=== PATIENT | male | born 1990 | race Caucasian/White ===

== ENCOUNTER 2024-08-26 20:19 | Inpatient (IN) ==
[2024-08-26] MEDS: ONDANSETRON 4 MG/2 ML VIAL IV ONE (20:54)
[2024-08-26] MEDS: 0.9 % SODIUM CHLORIDE 1,000 ML IV ONE ×2 (20:54→22:32)
[2024-08-26 21:16] LABS: Basophils # (Auto) 0.08 K/mcL (0.00-0.30); Basophils % (Auto) 0.3 % (0.0-2.0); Eosinophils # (Auto) 0.04 K/mcL (0.00-0.70); Eosinophils % (Auto) 0.1 % (0.0-7.0); Hematocrit 53.5 % (40.1-51.0); Lymphocytes # (Auto) 2.19 K/mcL (1.50-4.80); Lymphocytes % (Auto) 7.5 % (15.5-49.0); Mean Corpuscular HGB Conc 33.6 g/dL (31.0-36.0); Monocytes # (Auto) 1.29 K/mcL (0.10-0.90); Monocytes % (Auto) 4.4 % (1.0-12.0); Neutrophils % (Auto) 85.5 % (38.0-78.0); Platelet Count 329 K/mcL (140-440); RBC 5.63 M/mcL (4.63-6.08); Red Cell Distribution Width 11.8 % (11.5-14.5)
[2024-08-26 21:26] LABS: ABG Methemoglobin 0.3 % (0.4-1.5); Total Hemoglobin 18.6 gm/Dl (13.5-16.5); VBG Base Excess -26 (-2-3); VBG HCO3 6.3 mmol/L (24.0-28.0); VBG Oxygen Saturation 57.4 % (40.0-70.0); VBG PCO2 30.8 mmHg (41.0-51.0); VBG PH 6.93 U (7.32-7.42); VBG PO2 34.2 mmHg (25.0-40.0); VBG Total CO2 7.2 mmol/L (25.0-29.0)
[2024-08-26] MEDS: morphine 2 MG/ML VIAL IV ONE (21:35)
[2024-08-26 21:53] LABS: ALT/SGPT 37 U/L (<40); AST/SGOT 23 U/L (<40); Albumin 5.4 gm/dL (3.2-5.2); Albumin/Globulin Ratio 1.6 (1.0-2.3); Alkaline Phosphatase 159 U/L (39-117); Bilirubin,Total 0.4 mg/dL (0.1-1.0); Blood Urea Nitrogen 23 mg/dL (6-20); Calcium 9.8 mg/dL (8.6-10.4); Carbon Dioxide 7 mmol/L (22-30); Chloride 92 mmol/L (96-108); Globulin 3.4 gm/dL (2.2-3.7); Glomerular Filtration Rate 71; Glucose 384 mg/dL (70-105); Potassium 5.7 mmol/L (3.3-5.1); Sodium 134 mmol/L (133-145)
[2024-08-26 22:05] LABS: Appearance,Urine Clear (Clear); Bacteria,Urine 0 /hpf ({null, 0}); Bilirubin,Urine Negative (Negative); Color,Urine Yellow; Glucose,Urine (UA) 500 mg/dL (Negative); Ketones,Urine >=160 mg/dL (Negative); Leukocyte Esterase,Urine Negative /uL (Negative); Mucus,Urine Few /hpf; Nitrate,Urine Negative (Negative); PH,Urine 5.5 (5.0-9.0); Protein,Urine 100 mg/dL (Negative); Specific Gravity,Urine >= 1.030 (1.000-1.035); Urine Blood Moderate ery/mcL (Negative); Urine Granular Cast 20 /lph (0-0); Urine Hyaline Cast 2 /lph (0-2); Urine RBC < 1 /hpf (0-3); Urine Squamous Epithelial Cell < 1 /hpf (0-4); Urine WBC < 1 /hpf (0-4); Urobilinogen,Urine Normal
[2024-08-26] MEDS: INSULIN REGULAR, HUMAN 50 UNIT in 0.9 % SODIUM CHLORIDE 99.5 ML IV SCH (22:32)
[2024-08-26] MEDS: INSULIN REGULAR, HUMAN 1 UNIT/0.01 ML UNIT ONE (22:35)
[2024-08-26] MEDS: LACTATED RINGERS 1,000 ML IV ONE (23:34)
[2024-08-26 23:46] LABS: ABG Methemoglobin 0.2 % (0.4-1.5); Total Hemoglobin 17.2 gm/Dl (13.5-16.5); VBG Base Excess -27 (-2-3); VBG HCO3 5.5 mmol/L (24.0-28.0); VBG Oxygen Saturation 90.9 % (40.0-70.0); VBG PCO2 27.8 mmHg (41.0-51.0); VBG PH 6.91 U (7.32-7.42); VBG PO2 83.7 mmHg (25.0-40.0); VBG Total CO2 6.4 mmol/L (25.0-29.0)
[2024-08-27 00:18] LABS: Blood Urea Nitrogen 23 mg/dL (6-20); Calcium 8.2 mg/dL (8.6-10.4); Carbon Dioxide 5 mmol/L (22-30); Chloride 99 mmol/L (96-108); Glomerular Filtration Rate 87; Glucose 304 mg/dL (70-105); Potassium 6.2 mmol/L (3.3-5.1); Sodium 131 mmol/L (133-145)
[2024-08-27] MEDS ORDERED: ONDANSETRON 4 MG/2 ML VIAL IV PRN (00:18)
[2024-08-27] MEDS: SODIUM BICARBONATE VIAL 150 MEQ in DEXTROSE 5% IN WATER 850 ML IV SCH (00:21)
[2024-08-27] MEDS: SODIUM BICARBONATE 50 MEQ/50 ML VIAL IV ONE (00:22)
[2024-08-27] MEDS: INSULIN GLARGINE, HUMAN 1 UNIT/0.01 ML SQ SCH (00:23)
[2024-08-27] MEDS: INSULIN GLARGINE, HUMAN 1 UNIT/0.01 ML SQ ONE (00:43)
[2024-08-27] MEDS: DEXTROSE 5%-1/2NS W/10MEQ KCL 1,000 ML IV SCH (00:44)
[2024-08-27] MEDS: 0.9 % SODIUM CHLORIDE 250 ML IV SCH (00:44)
[2024-08-27] MEDS: 0.9 % SODIUM CHLORIDE 10 ML SYRINGE IV SCH (00:45)
[2024-08-27] MEDS ORDERED: DEXTROSE 5%-1/2NS W/20MEQ KCL 1,000 ML IV PRN (01:00)
[2024-08-27] MEDS: DEXTROSE 5%-1/2NS W/40MEQ KCL 1,000 ML IV SCH (01:23)
[2024-08-27 01:52] LABS: ABG Methemoglobin 0.1 % (0.4-1.5); Total Hemoglobin 15.7 gm/Dl (13.5-16.5); VBG Base Excess -17 (-2-3); VBG Oxygen Saturation 91.8 % (40.0-70.0); VBG PCO2 23.6 mmHg (41.0-51.0); VBG PO2 79.8 mmHg (25.0-40.0); VBG Total CO2 9.7 mmol/L (25.0-29.0)
[2024-08-27 02:11] LABS: Blood Urea Nitrogen 20 mg/dL (6-20); Calcium 8.2 mg/dL (8.6-10.4); Carbon Dioxide 9 mmol/L (22-30); Chloride 98 mmol/L (96-108); Glomerular Filtration Rate 98; Glucose 188 mg/dL (70-105); Potassium 4.2 mmol/L (3.3-5.1); Sodium 132 mmol/L (133-145)
[2024-08-27] MEDS: DEXTROSE 5%-1/2NS W/20MEQ KCL 1,000 ML IV PRN (02:20)
[2024-08-27] MEDS: SODIUM BICARBONATE VIAL 100 MEQ in DEXTROSE 5% IN WATER 900 ML IV SCH (02:22)
[2024-08-27] MEDS: POTASSIUM CHLORIDE 20 MEQ/10 ML VIAL IV ONE (02:23)
[2024-08-27] MEDS: INSULIN REGULAR, HUMAN 50 UNIT in 0.9 % SODIUM CHLORIDE 100 ML IV SCH (05:09)
[2024-08-27] MEDS: INSULIN REGULAR, HUMAN 50 UNIT in 0.9 % SODIUM CHLORIDE 99.5 ML IV SCH (05:25)
[2024-08-27] MEDS: INSULIN REGULAR, HUMAN 1 UNIT/0.01 ML UNIT ONE (05:59)
[2024-08-27 06:15] LABS: Blood Urea Nitrogen 15 mg/dL (6-20); Calcium 8.1 mg/dL (8.6-10.4); Carbon Dioxide 15 mmol/L (22-30); Chloride 102 mmol/L (96-108); Glomerular Filtration Rate 111; Glucose 256 mg/dL (70-105); Sodium 131 mmol/L (133-145)
[2024-08-27] MEDS ORDERED: GABAPENTIN 300 MG CAPSULE PO PRN (07:47)
[2024-08-27] MEDS ORDERED: POTASSIUM CHLORIDE 20 MEQ in DEXTROSE 5%-1/2NS 1,000 ML IV PRN (08:00)
[2024-08-27 08:10] LABS: Basophils # (Auto) 0.03 K/mcL (0.00-0.30); Basophils % (Auto) 0.2 % (0.0-2.0); Eosinophils # (Auto) 0.03 K/mcL (0.00-0.70); Eosinophils % (Auto) 0.2 % (0.0-7.0); Hematocrit 40.7 % (40.1-51.0); Hemoglobin 14.1 g/dL (13.7-17.5); Lymphocytes # (Auto) 2.88 K/mcL (1.50-4.80); Lymphocytes % (Auto) 15.5 % (15.5-49.0); Mean Cell Volume 90.6 fL (80.0-100.0); Mean Corpuscular HGB Conc 34.6 g/dL (31.0-36.0); Mean Platelet Volume 10.2 fL (8.8-12.5); Monocytes # (Auto) 1.45 K/mcL (0.10-0.90); Monocytes % (Auto) 7.8 % (1.0-12.0); Neutrophils % (Auto) 75.4 % (38.0-78.0); Platelet Count 227 K/mcL (140-440); RBC 4.49 M/mcL (4.63-6.08); Red Cell Distribution Width 11.9 % (11.5-14.5); WBC 18.6 K/mcL (4.5-11.0)
[2024-08-27] MEDS: DEXTROSE 50% 50 ML SYRINGE IV PRN (08:25)
[2024-08-27 08:36] LABS: ALT/SGPT 29 U/L (<40); AST/SGOT 18 U/L (<40); Albumin 4.2 gm/dL (3.2-5.2); Albumin/Globulin Ratio 1.8 (1.0-2.3); Alkaline Phosphatase 114 U/L (39-117); Bilirubin,Direct < 0.2 mg/dL (0-0.3); Bilirubin,Total 0.3 mg/dL (0.1-1.0); Blood Urea Nitrogen 19 mg/dL (6-20); Calcium 8.2 mg/dL (8.6-10.4); Carbon Dioxide 8 mmol/L (22-30); Chloride 101 mmol/L (96-108); Globulin 2.3 gm/dL (2.2-3.7); Glomerular Filtration Rate 98; Glucose 188 mg/dL (70-105); Lactate Dehydrogenase 208 U/L (135-225); Phosphorous 2.7 mg/dL (2.5-4.5); Potassium 4.2 mmol/L (3.3-5.1); Sodium 132 mmol/L (133-145); Triglycerides 87 mg/dL (<150); Uric Acid 8.4 mg/dL (2.5-8.0)
[2024-08-27 08:52] LABS: ALT/SGPT 23 U/L (<40); AST/SGOT 13 U/L (<40); Albumin 3.9 gm/dL (3.2-5.2); Albumin/Globulin Ratio 2.2 (1.0-2.3); Alkaline Phosphatase 101 U/L (39-117); Bilirubin,Direct < 0.2 mg/dL (0-0.3); Bilirubin,Total 0.3 mg/dL (0.1-1.0); Blood Urea Nitrogen 14 mg/dL (6-20); Calcium 8.3 mg/dL (8.6-10.4); Carbon Dioxide 16 mmol/L (22-30); Chloride 105 mmol/L (96-108); Globulin 1.8 gm/dL (2.2-3.7); Glomerular Filtration Rate 117; Glucose 171 mg/dL (70-105); Lactate Dehydrogenase 145 U/L (135-225); Phosphorous 1.2 mg/dL (2.5-4.5); Potassium 3.8 mmol/L (3.3-5.1); Sodium 134 mmol/L (133-145); Triglycerides 84 mg/dL (<150); Uric Acid 7.4 mg/dL (2.5-8.0)
[2024-08-27] MEDS: SERTRALINE 50 MG TABLET PO SCH (09:03)
[2024-08-27] MEDS: PANTOPRAZOLE 40 MG TABLET PO SCH (09:03)
[2024-08-27] MEDS: INSULIN LISPRO 1 UNIT/0.01 ML UNIT SQ SCH (09:37)
[2024-08-27 10:23] LABS: Blood Urea Nitrogen 14 mg/dL (6-20); Calcium 8.2 mg/dL (8.6-10.4); Carbon Dioxide 16 mmol/L (22-30); Chloride 105 mmol/L (96-108); Glomerular Filtration Rate 117; Glucose 246 mg/dL (70-105); Sodium 133 mmol/L (133-145)
[2024-08-27] MEDS: ENOXAPARIN 40 MG/0.4 ML SYRINGE SQ SCH (10:26)
[2024-08-27] MEDS: DEXTROSE 5%-1/2NS W/30MEQ KCL 1,000 ML IV SCH (12:39)
[2024-08-27] MEDS: POTASSIUM CHLORIDE 20 MEQ in DEXTROSE 5%-1/2NS 1,000 ML IV SCH (12:41)
[2024-08-27 14:07] LABS: Blood Urea Nitrogen 16 mg/dL (6-20); Calcium 8.2 mg/dL (8.6-10.4); Carbon Dioxide 17 mmol/L (22-30); Chloride 107 mmol/L (96-108); Glomerular Filtration Rate 123; Glucose 158 mg/dL (70-105); Potassium 3.8 mmol/L (3.3-5.1); Sodium 135 mmol/L (133-145)
[2024-08-27 17:56] LABS: Blood Urea Nitrogen 16 mg/dL (6-20); Calcium 8.5 mg/dL (8.6-10.4); Carbon Dioxide 18 mmol/L (22-30); Chloride 106 mmol/L (96-108); Glomerular Filtration Rate 117; Glucose 119 mg/dL (70-105); Phosphorous 1.1 mg/dL (2.5-4.5); Potassium 3.6 mmol/L (3.3-5.1); Sodium 137 mmol/L (133-145)
[2024-08-27] MEDS: POTASSIUM PHOSPHATE 40 MEQ in DEXTROSE 5% IN WATER 500 ML IV ONE (19:17)
[2024-08-27] MEDS: POTASSIUM PHOSPHATE 66 MEQ/15 ML VIAL IV ONE (20:23)
[2024-08-27 21:48] LABS: Blood Urea Nitrogen 14 mg/dL (6-20); Calcium 8.3 mg/dL (8.6-10.4); Carbon Dioxide 18 mmol/L (22-30); Chloride 106 mmol/L (96-108); Glomerular Filtration Rate 123; Glucose 168 mg/dL (70-105); Potassium 3.7 mmol/L (3.3-5.1); Sodium 137 mmol/L (133-145)
[2024-08-27] MEDS: POTASSIUM CHLORIDE 20 MEQ TABLET PO ONE ×2 (23:49→23:53)
[2024-08-28 01:35] LABS: Blood Urea Nitrogen 13 mg/dL (6-20); Calcium 8.5 mg/dL (8.6-10.4); Carbon Dioxide 21 mmol/L (22-30); Chloride 110 mmol/L (96-108); Glomerular Filtration Rate 117; Glucose 98 mg/dL (70-105); Potassium 3.6 mmol/L (3.3-5.1); Sodium 142 mmol/L (133-145)
[2024-08-28] MEDS: POTASSIUM CHLORIDE 20 MEQ/10 ML VIAL IV ONE (03:11)
[2024-08-28 06:12] LABS: ALT/SGPT 18 U/L (<40); AST/SGOT 12 U/L (<40); Albumin 3.4 gm/dL (3.2-5.2); Albumin/Globulin Ratio 1.9 (1.0-2.3); Alkaline Phosphatase 78 U/L (39-117); Bilirubin,Direct < 0.2 mg/dL (0-0.3); Bilirubin,Total 0.3 mg/dL (0.1-1.0); Blood Urea Nitrogen 11 mg/dL (6-20); Calcium 8.2 mg/dL (8.6-10.4); Carbon Dioxide 19 mmol/L (22-30); Chloride 110 mmol/L (96-108); Globulin 1.8 gm/dL (2.2-3.7); Glomerular Filtration Rate 131; Glucose 166 mg/dL (70-105); Lactate Dehydrogenase 121 U/L (135-225); Phosphorous 2.2 mg/dL (2.5-4.5); Sodium 140 mmol/L (133-145); Triglycerides 77 mg/dL (<150); Uric Acid 4.3 mg/dL (2.5-8.0)
[2024-08-28 06:37] LABS: Basophils # (Auto) 0.01 K/mcL (0.00-0.30); Basophils % (Auto) 0.1 % (0.0-2.0); Eosinophils % (Auto) 2.6 % (0.0-7.0); Hematocrit 36.5 % (40.1-51.0); Hemoglobin 12.8 g/dL (13.7-17.5); Lymphocytes # (Auto) 2.56 K/mcL (1.50-4.80); Lymphocytes % (Auto) 32.8 % (15.5-49.0); Mean Cell Volume 91.5 fL (80.0-100.0); Mean Corpuscular HGB Conc 35.1 g/dL (31.0-36.0); Mean Platelet Volume 10.1 fL (8.8-12.5); Monocytes # (Auto) 0.56 K/mcL (0.10-0.90); Monocytes % (Auto) 7.2 % (1.0-12.0); Platelet Count 155 K/mcL (140-440); RBC 3.99 M/mcL (4.63-6.08); Red Cell Distribution Width 12.8 % (11.5-14.5); WBC 7.8 K/mcL (4.5-11.0)
[2024-08-28] MEDS: LACTATED RINGERS 1,000 ML IV SCH (08:14)
[2024-08-28 09:56] LABS: Blood Urea Nitrogen 9 mg/dL (6-20); Calcium 8.3 mg/dL (8.6-10.4); Carbon Dioxide 21 mmol/L (22-30); Chloride 108 mmol/L (96-108); Glomerular Filtration Rate 131; Glucose 209 mg/dL (70-105); Potassium 4.1 mmol/L (3.3-5.1); Sodium 140 mmol/L (133-145)
[2024-08-28] MEDS ORDERED: POTASSIUM CHLORIDE 40 MEQ in DEXTROSE 5% IN WATER 500 ML IV ONE (13:41)
[2024-08-28 13:43] VITALS: TEMP 98.8; O2SAT 97
[2024-08-28] MEDS ORDERED: POTASSIUM CHLORIDE 10 MEQ/100 ML BAG IV SCH (13:45)
[2024-08-28] MEDS: POTASSIUM PHOSPHATE 20 MEQ in DEXTROSE 5% IN WATER 250 ML IV ONE (15:19)
[2024-08-28] MEDS: NEUTRA PHOS 1 PACKET PO ONE (15:19)
== END 2024-08-28 15:55 | disposition home or self-care (01) | DRG 639 ==
LOC: ED 20:19 → ICU 08-27 00:14
PROVIDERS: ADMIT Student in an Organized Health Care Education/Training Program; ATTEND Student in an Organized Health Care Education/Training Program